=== PATIENT | male | born 1990 | race Caucasian/White ===

== ENCOUNTER 2019-09-03 12:07 | Emergency (ER) | payer OTHER ==
[~2019-09-03] VITALS: Ht 175.3 cm; Wt 67.1 kg
[2019-09-03] MEDS ORDERED: MUCI600T31 PO (12:14)
[2019-09-03 13:05] LABS: INFLUENZA A AMPLIFICATION NEGATIVE (NEGATIVE); INFLUENZA B AMPLIFICATION NEGATIVE (NEGATIVE)
[2019-09-03] MEDS ORDERED: AMOX500C PO (13:19)
[2019-09-03 13:26] VITALS: BP 122/72
== END 2019-09-03 13:28 | disposition home or self-care (01) ==
LOC: M ED 12:07
DX: J32.0 Chronic maxillary sinusitis (principal)

== ENCOUNTER 2020-04-05 16:11 | Emergency (ER) | payer OTHER ==
[~2020-04-05] VITALS: Ht 175.3 cm; Wt 59.0 kg
[~2020-04-05 16:11] MED LIST: AMOX500C PO; MUCI600T31 PO
[2020-04-05] MEDS ORDERED: NAPR-837 PO (18:18)
[2020-04-05 19:12] VITALS: BP 123/77
== END 2020-04-05 19:19 | disposition home or self-care (01) ==
LOC: M ED 16:11
DX: M43.6 Torticollis (principal); X10.2XXA Contact with fats and cooking oils, initial encounter; T22.111A Burn of first degree of right forearm, initial encounter; Y92.89 Other specified places as the place of occurrence of the external cause; F33.9 Major depressive disorder, recurrent, unspecified; F41.9 Anxiety disorder, unspecified

== ENCOUNTER 2020-06-19 13:24 | Emergency (ER) | payer OTHER ==
[~2020-06-19] VITALS: Ht 175.3 cm; Wt 61.0 kg
[~2020-06-19 13:24] MED LIST changes: +NAPR-837 PO
[2020-06-19 14:37] LABS: HEMATOCRIT 40.7 % (42.0-52.0); HEMOGLOBIN 13.9 g/dl (13.5-17.5); MEAN CORPUSCULAR HEMOGLOBIN 32.2 pg (27.0-33.0); MEAN CORPUSCULAR HGB CONC 34.2 g/dl (32.0-36.5); MEAN CORPUSCULAR VOLUME 94.2 fl (80.0-96.0); PLATELET COUNT, AUTOMATED 176 10^3/uL (150-450); RED BLOOD COUNT 4.32 10^6/uL (4.30-6.10); WHITE BLOOD COUNT 7.5 10^3/uL (4.0-10.0)
[2020-06-19 15:04] LABS: ACETAMINOPHEN LEVEL < 2.0 UG/ML (10.0-30.0); ALT/SGPT 25 U/L (12-78); BILIRUBIN,DIRECT 0.4 MG/DL (0.0-0.2); BILIRUBIN,TOTAL 1.9 MG/DL (0.2-1.0); BLOOD UREA NITROGEN 15 MG/DL (7-18); CALCIUM LEVEL 8.9 MG/DL (8.5-10.1); CARBON DIOXIDE LEVEL 27 MEQ/L (21-32); CHLORIDE LEVEL 108 MEQ/L (98-107); CREATININE FOR GFR 0.86 MG/DL (0.70-1.30); GLOMERULAR FILTRATION RATE > 60.0 (>60); GLUCOSE, FASTING 88 MG/DL (70-100); SALICYLATE LEVEL < 1.7 MG/DL (5.0-30.0); SODIUM LEVEL 141 MEQ/L (136-145); THYROID STIMULATING HORMONE 0.719 uIU/ML (0.358-3.740); TOTAL PROTEIN 6.9 GM/DL (6.4-8.2)
[2020-06-19 16:15] LABS: AMPHETAMINES LEVEL URINE NEGATIVE (NEGATIVE); BARBITURATES URINE NEGATIVE (NEGATIVE); BENZODIAZEPINES URINE NEGATIVE (NEGATIVE); CANNABINOIDS URINE POSITIVE (NEGATIVE); COCAINE METABOLITE URINE NEGATIVE (NEGATIVE); METHADONE URINE NEGATIVE (NEGATIVE); OPIATES URINE NEGATIVE (NEGATIVE); PHENCYCLIDINE URINE NEGATIVE (NEGATIVE)
[2020-06-19 17:00] VITALS: BP 126/77
== END 2020-06-19 17:00 | disposition home or self-care (01) ==
LOC: M ED 13:24
DX: F33.9 Major depressive disorder, recurrent, unspecified (principal)
CPT/HCPCS: 36415; 80048; 80076; 80307; 84443; 85027; 99284; G0480

== ENCOUNTER 2020-08-28 12:55 | Emergency (ER) | payer OTHER ==
[~2020-08-28] VITALS: Ht 175.3 cm; Wt 62.3 kg
--- OUTSIDE RECORDS SUMMARY | 2020-08-28 13:03 | CCD ---
Author Author [facility] Address Unknown Phone Unavailable Support Name Relationship Address Phone TULLYS Next Of Kin [address] [place] [address] [employer] Next Of Kin [address] [place] [address] CONTACT, NO Next Of Kin Unknown Re-disclosure Warning The records that you are about to access may contain information from federally-assisted alcohol or drug abuse programs. If such information is present, then the following federally mandated warning applies: This information has been disclosed to you from records protected by federal confidentiality rules (42 CFR part 2). The federal rules prohibit you from making any further disclosure of this information unless further disclosure is expressly permitted by the written consent of the person to whom it pertains or as otherwise permitted by 42 CFR part 2. A general authorization for the release of medical or other information is NOT sufficient for this purpose. The Federal rules restrict any use of the information to criminally investigate or prosecute any alcohol or drug abuse patient.The records that you are about to access may contain highly sensitive health information, the redisclosure of which is protected by Article 27-F of the [place] Public Health law. If you continue you may have access to information: Regarding HIV / AIDS; Provided by facilities licensed or operated by the [facility] Office of Mental Health; or Provided by the [facility] Office for People With Developmental Disabilities. If such information is present, then the following [facility] mandated warning applies: This information has been disclosed to you from confidential records which are protected by state law. State law prohibits you from making any further disclosure of this information without the specific written consent of the person to whom it pertains, or as otherwise permitted by law. Any unauthorized further disclosure in violation of state law may result in a fine or senior living sentence or both. A general authorization for the release of medical or other information is NOT sufficient authorization for further disc losure. Insurance Providers Payer name Policy type / Coverage type Policy ID Covered republican ID Covered republican's relationship to [place] Policy [place] Plan Information CARIN [id number] SELF PAY ONLY [id number] CARIN [id number]
--- OUTSIDE RECORDS SUMMARY | 2020-08-28 13:29 | CCD ---
Author Author [facility] Organization [facility] Address Unknown Phone Unavailable Support Name Relationship Address Phone [place] Next Of Kin [address] [place] [address] TULLYS Next Of Kin [address] [place] [address] [employer] Next Of Kin [address] [place] [address] CONTACT, NO Next Of Kin Unknown Re-disclosure [...] is protected by Article 27-F of the [facility] Public Health law. If you continue you may have access to information: Regarding HIV / AIDS; Provided by facilities licensed or operated by the [facility] Office of Mental Health; or Provided by the [facility] Office for People With Developmental Disabilities. If such information is present, then the following [facility] mandated warning applies: This information has been [...] law may result in a fine or correction sentence or both. A general authorization for the release of medical or other information is NOT sufficient authorization for further disc losure. Insurance Providers Payer name Policy type / Coverage type Policy ID Covered republican ID Covered republican's relationship to [place] Policy [place] Plan Information CARIN [id number] SP [id number] SELF PAY ONLY [id number] SP [id number] CARIN [id number] SP [id number]
[2020-08-28] MEDS ORDERED: NS 1,000 ML IV ONE (14:15)
[2020-08-28 14:57] LABS: BASO # 0.1 10^3/uL (0.0-0.2); BASO % 0.7 % (0.0-1.0); EOS # 0.1 10^3/uL (0.0-0.5); EOS % 1.3 % (0.0-3.0); HEMATOCRIT 41.4 % (42.0-52.0); HEMOGLOBIN 14.6 g/dl (13.5-17.5); LYMPH # 1.5 10^3/uL (1.5-5.0); LYMPH % 21.7 % (24.0-44.0); MEAN CORPUSCULAR HEMOGLOBIN 32.8 pg (27.0-33.0); MEAN CORPUSCULAR HGB CONC 35.3 g/dl (32.0-36.5); MONO # 0.5 10^3/uL (0.0-0.8); MONO % 7.8 % (0.0-5.0); NEUTROPHILS # 4.7 10^3/uL (1.5-8.5); NEUTROPHILS % 68.2 % (36.0-66.0); PLATELET COUNT, AUTOMATED 180 10^3/uL (150-450); RED BLOOD COUNT 4.45 10^6/uL (4.30-6.10); WHITE BLOOD COUNT 6.8 10^3/uL (4.0-10.0)
[2020-08-28 15:31] LABS: RSV AMPLIFICATION NEGATIVE (NEGATIVE)
[2020-08-28 15:37] LABS: ALBUMIN 4.2 GM/DL (3.2-5.2); ALT/SGPT 21 U/L (12-78); BILIRUBIN,TOTAL 2.2 MG/DL (0.2-1.0); BLOOD UREA NITROGEN 14 MG/DL (7-18); CALCIUM LEVEL 9.1 MG/DL (8.5-10.1); CARBON DIOXIDE LEVEL 26 MEQ/L (21-32); CHLORIDE LEVEL 107 MEQ/L (98-107); CREATININE FOR GFR 0.99 MG/DL (0.70-1.30); GLOMERULAR FILTRATION RATE > 60.0 (>60); GLUCOSE, FASTING 122 MG/DL (70-100); POTASSIUM SERUM 4.3 MEQ/L (3.5-5.1); SODIUM LEVEL 140 MEQ/L (136-145); THYROID STIMULATING HORMONE 0.432 uIU/ML (0.358-3.740); TOTAL PROTEIN 7.1 GM/DL (6.4-8.2)
--- NOTE | 2020-08-28 16:34 | REP ---
INDICATION: NEURO INTACT, PT WITH DIZZINESS, FEELS OFF BALANCE. COMPARISON: None. TECHNIQUE: Helical scanning is acquired. 5 mm axial images were reformatted. Coronal MPR images were generated. FINDINGS: Bone window settings demonstrate an intact bony calvarium. There is no evidence of skull fracture or incidental bony calvarial lesion. The visualized paranasal sinuses appear clear. No intraorbital abnormality is seen. On soft tissue window setting images; the lateral, third, and fourth ventricles are normal in size and position. Burr-white differentiation pattern is normal above and below the tentorium. There are is no evidence of intracranial hemorrhage. No mass, edema, infarction, or midline shift is seen. No extra-axial fluid collection is appreciated. IMPRESSION: Negative noncontrast head CT. <Electronically signed by Dain Samaniego > 08/28/20 1530
[2020-08-28 17:19] LABS: APPEARANCE, URINE CLEAR (CLEAR); BACTERIA, URINE AUTO NEGATIVE (NEGATIVE); BILIRUBIN, URINE AUTO NEGATIVE (NEGATIVE); BLOOD, URINE BLOOD NEGATIVE (NEGATIVE); COLOR, URINE YELLOW (YELLOW); GLUCOSE, URINE (UA) AUTO NEGATIVE (NEGATIVE); KETONE, URINE AUTO TRACE mg/dL (NEGATIVE); LEUKOCYTE ESTERASE, URINE AUTO NEGATIVE (NEGATIVE); MUCUS, URINE MODERATE (NEGATIVE); NITRITE, URINE AUTO NEGATIVE (NEGATIVE); PROTEIN, URINE AUTO NEGATIVE (NEGATIVE); RBC, URINE AUTO 2 /HPF (0-3); SPECIFIC GRAVITY URINE AUTO 1.027 (1.002-1.035); SQUAMOUS EPITHELIAL CELL UR AU 0 /HPF (0-6); WBC, URINE AUTO 1 /HPF (0-3)
[2020-08-28 17:56] VITALS: BP 124/78
[2020-08-28] MEDS ORDERED: ONDA4TAB6 PO (17:59)
[2020-08-28] MEDS ORDERED: MECL1TAB31 PO (17:59)
== END 2020-08-28 18:19 | disposition home or self-care (01) ==
LOC: M ED 12:55
DX: F41.9 Anxiety disorder, unspecified (principal); R42 Dizziness and giddiness

== ENCOUNTER 2021-02-21 19:32 | Emergency (ER) | payer OTHER ==
[~2021-02-21] VITALS: Ht 172.7 cm; Wt 59.6 kg
[~2021-02-21 19:32] MED LIST changes: +MECL1TAB31 PO; +ONDA4TAB6 PO
[2021-02-21 19:33] VITALS: BP 113/70
== END 2021-02-21 22:22 | disposition left against medical advice (07) ==
LOC: M ED 19:32
DX: Z53.21 Procedure and treatment not carried out due to patient leaving prior to being seen by health care provider (principal)

== ENCOUNTER → 2022-04-29 | Outpatient (REF) | payer OTHER ==
[2022-04-29 17:36] LABS: RSV AMPLIFICATION NEGATIVE (NEGATIVE)
== END ==
LOC: M LAB REF 16:14
PROVIDERS: ATTEND Physician Assistant
DX: B34.9 Viral infection, unspecified (principal)

== ENCOUNTER 2023-08-11 11:21 | Emergency (ER) | payer OTHER ==
[~2023-08-11] VITALS: Ht 172.7 cm; Wt 68.2 kg
[~2023-08-11 11:21] MED LIST changes: +MECL-209 PO; -MECL1TAB31 PO
[2023-08-11 11:22] VITALS: BP 118/71; TEMP 98.1; O2SAT 97
[2023-08-11] MEDS ORDERED: OSEL75CA PO (12:23)
[2023-08-11] MEDS ORDERED: MUCI600T31 PO (12:25)
[2023-08-11] MEDS ORDERED: ACET325C5 PO (12:25)
== END 2023-08-11 16:54 | disposition left against medical advice (07) ==
LOC: M ED 11:21
DX: Z53.21 Procedure and treatment not carried out due to patient leaving prior to being seen by health care provider (principal)

== ENCOUNTER → 2025-08-01 | Outpatient (REF) | payer OTHER ==
[~2025-08-01] MED LIST changes: +ACET325C5 PO; +ONDA-282 PO; -ONDA4TAB6 PO; +OSEL75CA PO
== END ==
LOC: M LAB REF 15:39
PROVIDERS: ATTEND Physician Assistant
DX: J02.9 Acute pharyngitis, unspecified (principal)